=== PATIENT | male | born 1965 | race Caucasian/White ===

== ENCOUNTER 2020-12-18 12:34 | Emergency (ER) | payer OTHER, SELFPAY ==
[2020-12-18 12:56] VITALS: BP 126/71; PULSE 72; RESP 18; TEMP 36.8; O2SAT 98; BMI 51.7
--- NOTE | 2020-12-18 13:46 | ED.ALLEREA ---
HPI - Allergic Reaction General Chief complaint: General Medical Stated complaint: MEDICATION REACTION Time Seen by Provider: 12/18/20 13:35 Source: patient Mode of arrival: ambulatory Limitations: no limitations History of Present Illness MD complaint: other (Rash to lower extremities and starting on right dorsal aspect of hand) Onset (ago): day(s) (Three days) Exposure: medication (Patient recently started Lamictal 8 weeks ago) Symptoms: rash and itching (Worse at nighttime) Severity: moderate Treatment prior to arrival: benadryl Previous Allergic Reaction History: none Related Data Previous Rx's Medication Instructions Recorded diphenhydramine HCl [Benadryl 50 mg PO TID PRN #10 tab 12/18/20 Allergy] famotidine [Pepcid] 20 mg PO BID #10 tab 12/18/20 hydrocortisone 1 appl TOPICAL QD-TID PRN #454 g 12/18/20 prednisone 40 mg PO DAILY 5 Days #10 tab 12/18/20 Allergies Allergy/AdvReac Type Severity Reaction Status Date / Time No Known Allergies Allergy Verified 12/18/20 13:50 Review of Systems Review of Systems: Constitutional : No Fever, No Chills , no body aches, no recent illness Head/Face: No facial swelling, No facial redness ENT/Mouth : No oral/throat swelling, No Hoarseness, No Swallowing Difficulty Eyes: No Eye Pain, No Swelling, No Redness Cardiovascular : No Chest Pain, No SOB, No palpitations Respiratory : No Cough, No Sputum, No Wheezing, No Smoke Exposure, No Dyspnea Gastrointestinal : No Nausea, No Vomiting, No Diarrhea, No abdominal Pain Genitourinary : No Dysuria, No Urinary Frequency, No Hematuria Musculoskeletal : No joint pain, No Myalgias, No Joint Swelling Skin : No Skin Lesions, positive rash Neuro : No Weakness, No Numbness, No Headache, No dizziness, No tingling Psych : No Anxiety/Panic, No Depression Heme/Lymph: No Bruising, No Lymphadenopathy Endocrine : No Polyuria, No Polydipsia Denies changes in lotions or detergents. Denies drainage from rash. Denies any recent sick contacts or recent travel. Patient reports new Lamictal medication approximately 8 weeks ago Yes all other systems are reviewed and are negative PMFSH Past Medical History Attestation statement: The following information was validated with the patient. Medical History Depression HLD (hyperlipidemia) HTN (hypertension) Obesity Social History Social History Advance Directives: No Advance Directives Information Provided: No Physical Exam Vital Signs: Vital Signs: Last Vital Signs Temp 98.3 F 12/18/20 12:56 Pulse 72 12/18/20 12:56 Resp 18 12/18/20 12:56 BP 126/71 12/18/20 12:56 Pulse Ox 98 12/18/20 12:56 Body Mass Index 51.7 vital signs have been reviewed as normal and appeared to be correct. Blood pressure normal. Heart rate normal. Respiration rate normal. Temperature normal. Oxygen saturation normal. Appearance: Alert. Oriented X3. No acute distress. Head: Normal external exam. Normocephalic. Atraumatic. Eyes: PERRLA. EOMI. Conjunctiva and sclera normal. Eyelids normal. ENT: Pharynx normal. Uvula midline. Moist mucous membranes. Neck: Normal inspection. Neck supple. FROM. No adenopathy. Thyroid Normal. No meningeal signs. No neck mass noted. CVS: Normal heart rate and rhythm. Heart sound normal. Pulses normal throughout. No murmurs/rales/gallops. Respiratory: No respiratory distress. Painless inspiration. Breath sounds normal. No wheezes/rales/rhonchi noted. Chest nontender. No accessory muscle usage noted or decreased air movement noted. Back: Full range of motion noted. No rashes/lesion/induration/fluctuance or signs of infection noted. Skin: Skin warm and dry. Normal skin color. Normal skin turgor. To bilateral lower extremities dorsal aspect of feet and up upper legs patient has pruritic macular papular lesions appears like bites. No lesions/lacerations noted. Extremities: Extremities exhibit normal range of motion. Extremities nontender. Neuro: Oriented X 3. No motor deficit. No sensory deficit. Reflexes normal. Normal steady gait. No focal neuro deficits noted. Vascular: + radial pulses/+ 2 distal pedal pulses/+2 dorsalis pedis b/l. Normal cap refill. No cyanosis noted to upper extremity nails and lower extremity toes nails. Course Course Course Narrative: 55-year-old male who recently started Lamictal approximately 8 weeks ago presenting to the ED with complaints of small red bumps to bilateral lower extremity starting on the right hand he believes that this could be an allergic reaction has been taking Benadryl with mild to no symptomatic relief. He reports he has a dog but he does not believe his dog has fleas. He reports that he does not have bed bugs. He denies any recent travel or sick contacts. He reports he has not recently been hospitalized. He reports no one is in his house. On my exam I believe the patient has bedbugs although he does not agree. Will DC home with symptomatic treatment instructions to return if any new or worsening symptoms to follow up with primary care provider. Patient understands agrees with this plan. MDM - Allergic Reaction Medical Records Attestation: I reviewed the patient's medical records. Discharge Plan Discharge Clinical Impression: Rash Patient Disposition: Home, Self-Care Instructions: Acute Rash (ED), Bed Bugs (ED), General Allergic Reaction (ED) Prescriptions: New diphenhydramine HCl [Benadryl Allergy] 25 mg tablet 50 mg PO TID PRN (Reason: rash) Qty: 10 RF: 0 hydrocortisone 2.5 % ointment 1 appl topical QD-TID PRN (Reason: skin irritation) Qty: 454 RF: 0 famotidine [Pepcid] 20 mg tablet 20 mg PO BID Qty: 10 RF: 0 prednisone 20 mg tablet 40 mg PO DAILY 5 Days Qty: 10 RF: 0 Referrals: Katey Jc MD [Primary Care Provider] - 2 days Print Language: Mohawk
== END 2020-12-18 14:03 | disposition home or self-care (01) ==
PROVIDERS: Emergency Provider Emergency Medicine; PCP Internal Medicine
DX: R21 Rash and other nonspecific skin eruption (principal); I10 Essential (primary) hypertension
CPT/HCPCS: 99283

== ENCOUNTER 2023-03-24 14:16 | Emergency (ER) | payer OTHER, SELFPAY ==
--- NOTE | ~2023-03-24 | XR_ITS ---
EXAMINATION: XR CHEST CLINICAL INFORMATION: Cough and shortness of breath COMPARISON: None available. TECHNIQUE: 2 views of the chest were obtained. FINDINGS: The cardiomediastinal silhouette is normal. There is no focal lung consolidation or pleural effusion. The bony structures and soft tissues are unremarkable. XR/XR chest 2V IMPRESSION: No active cardiopulmonary disease.
[2023-03-24 14:37] VITALS: BP 166/95; PULSE 84; RESP 18; TEMP 36.5; O2SAT 97; BMI 58.1
--- NOTE | 2023-03-24 14:37 | ED.GENADULT ---
HPI - General Adult General Chief complaint: General Medical Stated complaint: covid symptons vomiting diarrhea dizzy Time Seen by Provider: 03/25/23 01:33 Source: patient Mode of arrival: ambulatory Limitations: no limitations History of Present Illness HPI narrative: patient already been vaccinated against COVID, patient's partner was sick and was COVID positive patient tested also COVID positive on 03/12 but was asymptomatic at that time but started on Paxlovid by his PCP was doing good for last 3 days patient been having nausea vomiting and diarrhea about 5 to 6 times a day with increasing cough no recent travel no recent antibiotic , patient feel exhausted saturating 100% at room air Related Data Previous Rx's Medication Instructions Recorded diphenhydramine HCl 25 mg tablet 50 mg (2 x 25 mg) PO TID PRN rash 12/18/20 (Benadryl Allergy) #10 tabs famotidine 20 mg tablet (Pepcid) 20 mg PO BID rash #10 tabs 12/18/20 hydrocortisone 2.5 % topical 1 appl topical QD-TID PRN skin 12/18/20 ointment irritation #454 grams prednisone 20 mg tablet 40 mg (2 x 20 mg) PO DAILY rash 5 12/18/20 days #10 tabs benzonatate 200 mg capsule 200 mg PO TID PRN cough #30 caps 03/25/23 loperamide 2 mg tablet (Imodium 2 mg PO Q6H PRN loose stool #14 03/25/23 A-D) tabs ondansetron 4 mg disintegrating 4 mg PO Q6-8H PRN nausea and 03/25/23 tablet vomiting #14 tabs Allergies Allergy/AdvReac Type Severity Reaction Status Date / Time No Known Allergies Allergy Verified 12/18/20 13:50 Review of Systems Review of Systems: Yes all other systems are reviewed and are negative PMFSH Past Medical History Medical History HTN (hypertension) Obesity HLD (hyperlipidemia) Depression Social History Social History Smoked in Last 30 Days: No Use of substances other than those prescribed or required for medical reasons: Yes Substance Use Type: Marijuana Substance Use Frequency: Daily Last Used Substance: Days (ago) Advance Directives: Yes Advance Directives Information Provided: No Advance Directives on File: No Physical Exam ED Vital Signs: Vital Signs - 24 hr 03/25/23 00:46 03/25/23 02:25 Temperature 98.0 F Pulse Rate 69 68 Respiratory Rate 16 14 Blood Pressure 165/87 H 123/73 Pulse Oximetry 100 98 Oxygen Delivery Method Room Air Room Air BMI result Body Mass Index 58.1 Appearance: Alert. Oriented X3. No acute distress. Eyes: no pallor or icterus ENT: Pharynx normal. Oral Mucosa moist Neck: Normal inspection. Neck supple. CVS: Normal heart rate and rhythm. Pulses normal. Respiratory: No respiratory distress. Equal air entry bilateral, no wheezing/rales/rhonchi Abdomen: Soft and nontender. Bowel sounds are present, no mass palpable, no CVA tenderness Skin: Skin warm and dry. Normal skin color. Normal skin turgor. Extremities: No lower extremity edema. No calf tenderness Neuro: Oriented X 3. No motor deficit. Course Course Course Narrative: RME performed by Jolanta Pérez PA-C. Patient is a 57 year old assigned male at presenting to the emergency department feeling generally unwell. Patient had COVID-19 on March 12. Labs, imaging, and swabs ordered. Patient placed back in the waiting room pending room availability and results. Medications Administered Discontinued Medications Generic Name Dose Route Start Last Admin Trade Name Freq PRN Reason Stop Dose Admin Guaifenesin/Codeine Phosphate 10 ml 03/25/23 01:42 03/25/23 01:51 Guaifen/Codeine Sf 200/20/10ml 10 Ml Liquid PO 03/25/23 01:43 10 ml ONCE ONE Administration Sodium Chloride 1,000 mls @ 999 mls/hr 03/25/23 01:00 03/25/23 02:04 Ns IVCONT 03/25/23 03:00 999 mls/hr .Q1H1M ALICIA Administration Loperamide HCl 2 mg 03/25/23 01:42 03/25/23 01:51 Loperamide Hcl 2 Mg Capsule PO 03/25/23 01:43 2 mg ONCE ONE Administration Ondansetron HCl 4 mg 03/25/23 00:55 03/25/23 01:45 Ondansetron Hcl 4 Mg/2 Ml Vial IVPUSH 03/25/23 00:56 4 mg ONCE ONE Administration Potassium Chloride 40 meq 03/25/23 00:55 03/25/23 01:45 Potassium Chloride Packet 20 Meq Packet PO 03/25/23 00:56 40 meq ONCE ONE Administration Medical Decision Making Medical Decision Making [facility] Narrative: patient with COVID positive nausea saturating 100% at room air will discharge patient home on Zofran and Imodium as needed and cough drops patient's potassium was 3.2 potassium was replaced in the ER Differential Diagnosis Differential Diagnoses: The differential diagnosis associated with the presentation includes gastroenteritis /COVID/viral Lab Data [facility] Lab Attestation statement: I reviewed the patient's lab results. 03/24/23 16:16 03/24/23 16:16 Labs: Lab Results 03/24/23 Range/Units 16:16 WBC 5.9 (4.8-10.8) X10*3/uL RBC 5.22 (4.60-5.80) X10*6/uL Hgb 15.1 (14.0-18.0) g/dl Hct 43.5 (42.0-52.0) % MCV 83.3 (80.0-98.0) fL MCH 28.9 (27.0-33.0) pg MCHC 34.7 (31.0-36.0) g/dl RDW 13.4 (11.0-16.0) % Plt Count 138 L (160-400) X10*3/uL MPV 10.6 (9.4-12.4) fL Immature Gran % (Auto) 0.5 H (0.0-0.4) % Neut % (Auto) 71.5 (45-73) % Lymph % (Auto) 15.0 L (20-40) % [place] % (Auto) 11.8 H (2-11) % Eos % (Auto) 0.2 (0-4) % Baso % (Auto) 1.0 (0-2) % Lymph # (Auto) 0.9 L (1.2-4.9) X10*3/uL [place] # (Auto) 0.7 (0.1-1.2) X10*3/uL Eos # (Auto) 0.0 (0.0-0.4) X10*3/uL Baso # (Auto) 0.1 (0.0-0.2) X10*3/uL Abs Immat Gran (auto) 0.03 (0.00-0.03) X10*3/uL Absolute Neuts (auto) 4.2 (2.0-8.3) x10*3/uL Absolute Nucleated RBC 0.000 (0.0-0.012) X10*3/uL Nucleated RBC % (auto) 0.0 (0.0-0.2) /100WBC Sodium 139 (135-145) mmol/L Potassium 3.2 L (3.3-5.1) mmol/L Chloride 105 (96-108) mmol/L Carbon Dioxide 23 (22-29) mmol/L Anion Gap 14 (12-20) BUN 16 (9-16) mg/dL Creatinine 0.79 (0.5-1.4) mg/dL Estim Creat Clear Calc 164.9 Estimated GFR > 60 Random Glucose 125 H (60-115) mg/dL Calcium 9.4 (8.4-10.2) mg/dL Magnesium 2.3 (1.6-2.6) mg/dL Total Bilirubin 0.5 (0.0-1.0) mg/dL AST 19 (5-37) U/L ALT 28 (0-40) U/L Alkaline Phosphatase 50 (39-117) U/L Total Protein 7.4 (6.5-8.0) g/dL Albumin 4.0 (3.5-5.0) g/dL Influenza Type A (PCR) NEGATIVE (Negative) Influenza Type B (PCR) NEGATIVE (Negative) RSV RNA Qual (PCR) NEGATIVE (Negative) SARS-CoV-2 RNA (RT-PCR) POSITIVE A (Negative) Discharge Plan Discharge Clinical Impression: COVID-19 Patient Disposition: Home, Self-Care Instructions: COVID-19 (Coronavirus Disease 2019) (ED) Additional Instructions: drink plenty of fluids medicine for nausea and diarrhea and cough as prescribed social distancing Prescriptions: New ondansetron 4 mg tablet,disintegrating 4 mg PO Q6-8H PRN (Reason: nausea and vomiting) Qty: 14 0RF loperamide [Imodium A-D] 2 mg tablet 2 mg PO Q6H PRN (Reason: loose stool) Qty: 14 0RF benzonatate 200 mg capsule 200 mg PO TID PRN (Reason: cough) Qty: 30 0RF No Action diphenhydramine HCl [Benadryl Allergy] 25 mg tablet 50 mg PO TID PRN (Reason: rash) Qty: 10 0RF hydrocortisone 2.5 % ointment 1 appl topical QD-TID PRN (Reason: skin irritation) Qty: 454 0RF famotidine [Pepcid] 20 mg tablet 20 mg PO BID Qty: 10 0RF prednisone 20 mg tablet 40 mg PO DAILY 5 Days Qty: 10 0RF Interventions: ED Discharge Assessment Last Done: 03/25/23 02:29 Discharge Date/Time: 03/25/23 02:30
[2023-03-24 16:27] LABS: Basophils Absolute Auto 0.1 X10*3/uL (0.0-0.2); Eosinophils Percent Auto 0.2 % (0-4); Imm Gran Abs Auto 0.03 X10*3/uL (0.00-0.03); Imm Gran Pct Auto 0.5 % (0.0-0.4); Mean Platelet Volume 10.6 fL (9.4-12.4); PLT CLUMP 1; SCAN SMEAR FLAG 1
[2023-03-24 16:28] LABS: Hematocrit 43.5 % (42.0-52.0); Hemoglobin 15.1 g/dl (14.0-18.0); Lymphocytes Absolute Auto 0.9 X10*3/uL (1.2-4.9); Mean Corpuscular HGB Conc 34.7 g/dl (31.0-36.0); Mean Corpuscular Hemoglobin 28.9 pg (27.0-33.0); Mean Corpuscular Volume 83.3 fL (80.0-98.0); Monocytes Absolute Auto 0.7 X10*3/uL (0.1-1.2); Monocytes Percent Auto 11.8 % (2-11); Neutrophils Absolute Auto 4.2 x10*3/uL (2.0-8.3); Neutrophils Percent Auto 71.5 % (45-73); Red Blood Count 5.22 X10*6/uL (4.60-5.80); Red Cell Distribution Width 13.4 % (11.0-16.0)
[2023-03-24 16:40] LABS: Alanine Aminotransferase 28 U/L (0-40); Alkaline Phosphatase 50 U/L (39-117); Anion Gap 14 (12-20); Aspartate Amino Transferase 19 U/L (5-37); Bilirubin Total 0.5 mg/dL (0.0-1.0); Blood Urea Nitrogen 16 mg/dL (9-16); Calcium 9.4 mg/dL (8.4-10.2); Carbon Dioxide 23 mmol/L (22-29); Chloride 105 mmol/L (96-108); Creatinine Clr Calc Pharmacy 164.9; Estimated Glomerular Filt Rate > 60; Glucose Random 125 mg/dL (60-115); Magnesium 2.3 mg/dL (1.6-2.6); Potassium 3.2 mmol/L (3.3-5.1); Sodium 139 mmol/L (135-145); Total Protein 7.4 g/dL (6.5-8.0)
[2023-03-24 16:54] LABS: Platelet Count 138 X10*3/uL (160-400); White Blood Count 5.9 X10*3/uL (4.8-10.8)
[2023-03-24 16:55] LABS: MANUAL DIFF FLAG NO
[2023-03-24 17:03] LABS: Influenza A PCR NEGATIVE (Negative); Influenza B PCR NEGATIVE (Negative); Resp Syncy Virus RNA Qual PCR NEGATIVE (Negative); SARS COV2 PCR INHOUSE POSITIVE (Negative)
[2023-03-25 00:46] VITALS: BP 165/87; PULSE 69; RESP 16; TEMP 36.7; O2SAT 100
--- NOTE | 2023-03-25 00:47 | PC.NURSE ---
Pt ca&ox4, no signs of acute distress Pt ambulates with a steady gait. Pt reports /10 mid abdm pain. Vitals done. Report given to pts RN. Plan of care ongoing.
[2023-03-25] MEDS: 0.9 % Sodium Chloride 1,000 ML 999 ML IVCONT ×2 (01:32→02:04)
[2023-03-25] MEDS: ondansetron HCL 4 MG/2 ML VIAL IVPUSH (01:45)
[2023-03-25] MEDS: Potassium Chloride Packet 20 MEQ PACKET 40 MEQ PO (01:45)
[2023-03-25] MEDS: Loperamide HCl 2 MG CAPSULE PO (01:51)
[2023-03-25] MEDS: guaiFEN/Codeine SF 200/20/10ML 10 ML LIQUID PO (01:51)
[2023-03-25 02:25] VITALS: BP 123/73; PULSE 68; RESP 14; O2SAT 98
== END 2023-03-25 02:30 | disposition home or self-care (01) ==
PROVIDERS: Physician Assistant Medical; Emergency Provider Internal Medicine; PCP Internal Medicine
DX: U07.1 COVID-19 (principal); R11.2 Nausea with vomiting, unspecified; R06.02 Shortness of breath; Z79.899 Other long term (current) drug therapy
CPT/HCPCS: 0241U; 71046; 80053; 83735; 85025; 96361; 96374; 99284; J2405

== ENCOUNTER 2025-04-11 08:10 | Outpatient (AMB) | payer OTHER, SELFPAY ==
--- OUTSIDE RECORDS SUMMARY | 2025-04-11 08:31 | XMS_ITS | Clinical Summary ---
Author Organization [address] Address [address] [place] [phone] Phone Care Team Providers Care Supervisor Accounts Receivable Name Role Phone Ruth Singh MD Primary Care Provider [phone] Allergies Active Allergy Reactions Criticality Noted Date Comments Hydrocodone-Acetaminophen Nausea And Vomiting 1 Pneumococcal 23-Sari Ps Vaccine 03/11 Medications ibuprofen (ADVIL,MOTRIN) 800 mg tablet Take 1 Tablet by mouth every 8 hours as needed for Pain. - Oral Active lamoTRIgine (LaMICtal) 200 mg tablet Take by mouth 1 (one) time each day. Active CHOLECALCIFEROL , VITAMIN D3, ORAL Take by mouth 1 (one) time each day. Active FLAXSEED OIL ORAL Take by mouth 1 (one) time each day. Active ARIPiprazole (ABILIFY) 2 mg tablet Take 1 tablet (2 mg total) by mouth 1 (one) time each day. Active omega-3 fatty acids-fish oil 300-500 mg capsule Take by mouth 1 (one) time each day. Active multivitamin tablet Take 1 tablet by mouth 1 (one) time each day. Active NON FORMULARY CPAP Historical (HISTORICAL CPAP===16 cm by Nasal route at bedtime. Via full face mask with oxygen @@ hs - Nasal Active Oxygen Therapy (O2) gas by Nasal route at bedtime. apria - Nasal Active aspirin 81 mg EC tablet Take 1 tablet (81 mg total) by mouth 1 (one) time each day. Active lisinopriL (PRINIVIL,ZESTR IL) 10 mg tablet Take 1 tablet (10 mg total) by mouth 1 (one) time each day. 90 tablet 1 5 Active atorvastatin (LIPITOR) 20 mg tablet Take 1 tablet (20 mg total) by mouth 1 (one) time each day. 90 each 1 5 Active VITAMIN K2 ORAL Take by mouth. Active Active Problems Problem Noted Date Diagnosed Date HTN (hypertension) 03/11/2024 Depression 03/11/2024 Sleep apnea 03/11/2024 Morbid obesity ([facility] V24, [facility] V28) 2023 Asthma 03/11/2024 Pure hypercholesterolemia 03/11/2024 Elevated glucose 03/11/2024 KING on CPAP 03/11/2024 Hepatic steatosis 03/11/2024 Bipolar 2 disorder ([facility] V24, [facility] V28) Palpitation 03/11/2024 Biliary dyskinesia 03/11/2024 Sinus tachycardia 03/11/2024 Frequent PVCs 03/11/2024 Immunizations Immunization Administration Dates Next Due Influenza Quadravalent, MDCK , 0.5ml, preservative free (Flucelvax) 6mo and older 02/18/2019 Influenza Quadravalent, MDCK , 0.5ml, with preservative (Flucelvax) 6mo and older 03/24/2017 Influenza trivalent, with pr eservative (Fluzone; Afluria) 6mo and older 06/11/2016,04/07/2014,02/02/2013 Influenza, Unspecified 03/30/2018 Pneumococcal polysaccharide 23 valent (Pneumovax 23) 2yo and older 08/27/2013 Tdap Tetanus diptheria acell ular pertussis (Boostrix; Adacel) 7yo and older 10/19/2024,08/27/2013 Surgical History Surgery Date Site/Laterality Comments OTHER SURGICAL HISTORY PROCEDURE: ---- OTHER ----; COMMENT: salivary glands removed OTHER SURGICAL HISTORY Left PROCEDURE: EXCISION OF SALIVARY GLAND CHOLECYSTECTOMY PROCEDURE: UT LAPAROSCOPY SURG CHOLECYSTECTOMY Medical History Medical History Date Comments Morbid obesity ([facility] V24, [facility] V28) 02/04/20 13 DX:Morbid obesity (HCC) Sleep apnea 02/03/2013 DX:Sleep apnea Depression 02/03/2013 DX:Depression HTN (hypertension) 02/03/2013 DX:HTN (hyper tension) Pure hypercholesterolemia 04/07/2014 DX:Pur e hypercholesterolemia Severe nausea DX:Severe nausea Biliary dyskinesia DX:Biliary dy skinesia Family History Medical History Relation Name Comments Other: Other Mother Autoimmune disease Neg Hx Breast cancer Neg Hx Colon cancer Neg Hx Coronary artery disease Neg Hx Diabetes Neg Hx Heart attack Neg Hx Heart failure Neg Hx Hyperlipidemia Neg Hx Hypertension Neg Hx Mental illness Neg Hx Prostate cancer Neg Hx Sleep apnea Neg Hx Thyroid disease Neg Hx Relation Name Status Comments Father Alive Mother Social History Tobacco Use Types Packs/Day Years Used Date Smoking Tobacco: Former Cigarettes 0 Q uit: 06/05/1992 Smokeless Tobacco: Former Alcohol Use Standard Drinks/Week Comments Not Asked 0 (1 standard drink = 0.6 oz pur e alcohol) Housing Instability Answer Date Recorde d Are you worried that in the next 2 months you may not have stable housing? No 10/19/2024 Food Access & Nutrition Answer Date Rec orded Do you have access to a vari ety of food including fruits and vegetables? Yes 10/19/2024 Access to Healthcare Answer Date Record ed Within the last 3 months, ho w many times did you visit the emergency department for your medical care? 0 10/19/2024 Health Literacy Answer Date Recorded How often do you need to hav e someone help you when you read instructions, pamphlets, or other written material from your doctor or pharmacy? Never 10/19/2024 Caregiver: How often do you need to have someone help you when you read instructions, pamphlets, or other written material from your doctor or pharmacy? Not on file 10/19/2024 Financial Risk Answer Date Recorded How hard is it for you to pa y for the very basics like food, housing, medical care, and air conditioning / heating? Very hard 10/19/2024 Transportation Answer Date Recorded Has the lack of transportati on kept you from meetings, work, or from getting things needed for daily living? No Has the lack of transportati on kept you from medical appointments or from getting medications? No 10/19/2024 Social Isolation Answer Date Recorded How often do you feel lonely or isolated from th ose around you? Never 10/19/2024 Food Risk Answer Date Recorded Within the past 12 months we worried whether our food would run out before we got money to buy more. Never true 10/19/2024 Within the past 12 months th e food we bought just didn't last and we didn't have money to get more. Never true 10/19/2024 Dependent Care Answer Date Recorded Do you need help finding or paying for care for your loved ones. For example, child adolescent care or elderly care for an older adult? No 10/19/2024 Education Answer Date Recorded Do you think completing more education or training, like finishing a GED, going to college, or learning a trade, would be helpful for you? No 10/19/2024 Employment and Income Answer Date Recor ded During the last four weeks, have you been actively looking for work? No 10/19/2024 Living Situation Answer Date Recorded What is your living situation? Unrecognized valu e 10/19/2024 Sex and Gender Information Value Date Recorded Sex Assigned at Not on file Legal Sex Male 6:53 PM EST Gender Identity Not on file Sexual Orientation Not on file Obstetrics History Last Filed Vital Signs Vital Sign Reading Time Taken Comments Blood Pressure 122/80 10/19/2024 4:26 PM EDT Pulse 76 10/19/2024 4:26 PM EDT Temperature 36.2 C (97.2 F) 10/19/2024 4:26 PM EDT Respiratory Rate 16 10/19/2024 4:26 PM EDT Oxygen Saturation 97% 10/19/2024 4:26 PM EDT Inhaled Oxygen Concentration - - Weight 160 kg (352 lb) 10/19/2024 4:26 PM EDT Height 172.7 cm (5' 8 ) 10/19/2024 4:26 PM EDT Body Mass Index 53.52 10/19/2024 4:26 PM EDT Plan of Treatment Health Maintenance Due Date Last Done Comments Hepatitis A Vaccines (1 of 2 - Risk 2-dose series) 1986 Hepatitis B Vaccines (1 of 3 - 19+ 3-dose series) 1986 Pneumococcal Vaccine: 50+ Years (2 of 2 - PCV) 08/27/2014 08/27/2013 RSV Immunization Adult Patients (1 - Risk 50-74 years 1-dose series) 2017 Zoster Vaccines (1 of 2) 2017 HIV Screening 05/04/2022 Hepatitis C Screening 05/04/2022 Influenza Vaccine (#1) 2025 , 03/29/2022, 02/18/2019, Additional history exists Hypertension/CHF/CAD Annual BMP Blood Test 04/19/2025 04/19/2024, 02/13/2023 Social Influencers of Health Screening 10/19/2025 10/19/2024 Cholesterol Screening (Lipid Panel) 04/19/2029 04/19/2024, 02/13/2023 Colorectal Cancer Screening: Colonoscopy 03/19/2031 03/19/2021 DTaP,Tdap,and Td Vaccines (3 - Td or Tdap) 10/19/2034 10/19/2024, 08/27/2013 COVID-19 Vaccine Completed 05/07/2024, , 11/07/2021, Additional history exists Depression Screening Completed 10/19/2024 HIB Vaccines Aged Out No longer eligi ble based on patient's age to complete this topic HPV Vaccines Aged Out No longer eligi ble based on patient's age to complete this topic IPV Vaccines Aged Out No longer eligi ble based on patient's age to complete this topic MMR Vaccines Aged Out No longer eligi ble based on patient's age to complete this topic Meningococcal ACWY Vaccine Aged Out N o longer eligible based on patient's age to complete this topic Meningococcal B Vaccine Aged Out No l onger eligible based on patient's age to complete this topic RSV Immunization Patients Under 20 months Aged Out No longer eligible based on patient's age to complete this topic Varicella Vaccines Aged Out No longer eligible based on patient's age to complete this topic Procedures Procedure Name Priority Date/Time Associated Diagnosis Comments BASIC METABOLIC PANEL Routine 04/19/2024 3:41 PM EST Primary hypertension LIPID PANEL WITH REFLEX TO DIRECT LDL Routine 04/19/2024 3:41 PM EST Pure hypercholesterolemia HM COLONOSCOPY Routine 03/19/2021 from Last 3 Months or Most Recently Relevant to Health Maintenance Results * (ABNORMAL) Lipid panel with reflex to direct LDL (04/19/2024 3:41 PM EST) Cholesterol 188 0 - 200 mg/dL LAB CHEMISTRY METHOD 04/19/2024 6:37 PM EST [facility] Triglycerides 291(H) 0 - 150 mg/dL LAB CHEMISTRY METHOD 04/19/2024 6:37 PM [facility] HDL 41 >=40 mg/dL LAB CHEMISTRY METHOD 04/19/2024 6:37 PM [facility] LDL Calculated 89 0 - 100 mg/dL LAB CHEMISTRY METHOD 04/19/2024 6:37 PM [facility] VLDL Cholesterol Smith 58.2 mg/dL LAB CHEMISTRY METHOD 04/19/2024 6:37 PM [facility] Non HDL Chol. (LDL+VLDL) 147(H) <145 mg/dL LAB CHEMISTRY METHOD 04/19/2024 6:37 PM [facility] Chol/HDL Ratio 4.6(H) 0.0 - 4.4 LAB CHEMISTRY METHOD 04/19/2024 6:37 PM [facility] Blood Venous blood specimen / Unknown Venipuncture / Unknown 04/19/2024 3:41 PM EST 04/19/2024 3:41 PM EST us Nikolai DIAZ LAB BLOOD ORDERABLES Final Res ult [facility] [address] [place] [address], * Basic metabolic panel (04/19/2024 3:41 PM EST) Pathologist [facility] Sodium 143 133 - 145 mmol/L LAB CHEMISTRY METHOD 04/19/2024 6:35 PM [facility] Potassium 4.0 3.5 - 5.5 mmol/L LAB CHEMISTRY METHOD 04/19/2024 6:35 PM [facility] Chloride 110 96 - 110 mmol/L LAB CHEMISTRY METHOD 04/19/2024 6:35 PM [facility] CO2 26 21 - 32 mmol/L LAB CHEMISTRY METHOD 04/19/2024 6:35 PM [facility] Anion Gap 7 3 - 11 LAB CHEMISTRY METHOD 04/19/2024 6:35 PM [facility] Glucose 79 70 - 100 mg/dL LAB CHEMISTRY METHOD 04/19/2024 6:35 PM [facility] BUN 20 5 - 25 mg/dL LAB CHEMISTRY METHOD 04/19/2024 6:35 PM [facility] Creatinine 1.16 0.70 - 1.30 mg/dL LAB CHEMISTRY METHOD 04/19/2024 6:35 PM [facility] eGFR 73 >=60 mL/min/1. 73m2 LAB CHEMISTRY METHOD 04/19/2024 6:35 PM [facility] Comment:Calculation based on the Chronic Kidney Disease Epidemiology Collaboration (CKD-EPI) equation refit without adjustment for race. BUN/Creatinine Ratio 17.2 LAB CHEMISTRY METHOD 04/19/2024 6:35 PM [facility] Calcium 9.5 8.5 - 10.5 mg/dL LAB CHEMISTRY METHOD 04/19/2024 6:35 PM [facility] Blood Venous blood specimen / Unknown Venipuncture / Unknown 04/19/2024 3:41 PM EST 04/19/2024 3:41 PM EST Nikolai DIAZ LAB BLOOD ORDERABLES Final Res ult [facility] [address] [place] [address], * Colonoscopy (03/19/2021) Colonoscopy no interpretation abstracted Anatomical Region Laterality Modality Other Historical Provider HEALTH MAINTENANCE Final Result from Last 3 Months or Most Recently Relevant to Health Maintenance Insurance [employer] Care Teams Supervisor Accounts Receivable Relationship Specialty Start Date End Date Ruth Singh MD [address] [place] [phone] PCP - General Internal Medicine 04/15/24
--- NOTE | 2025-04-11 12:06 | MHC.OFFVISWM ---
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 BMI 55.0 Allergies opiates Allergy (Intermediate, Uncoded 04/11/25 12:06) Nausea Medication List - Last Reconciled 04/11/25 by Allen Singh MD albuterol sulfate 90 mcg/actuation (Ventolin HFA) 2 puffs inhalation Q6H PRN aripiprazole (Abilify) 2 mg PO BEDTIME atorvastatin (Lipitor) 20 mg PO BEDTIME escitalopram oxalate 10 mg PO DAILY lamotrigine (Lamictal) 200 mg PO DAILY lisinopril 20 mg PO DAILY ondansetron 4 mg PO Q6-8H PRN HPI HPI 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 BMI 55.0: Details: Start time: 11.48am, End time: 12.48pm ?I spent 50 minutes speaking with the patient on the phone plus an additional 10 minutes reviewing and updating records for a total of 60 minutes HPI Comments Details: Previous weight loss efforts: self diets and exercise (70lbs) Wakes up: 7am, Sleeps: 11pm Breakfast: skips Lunch: skips Dinner: 5-6pm (stir jensen, tacos) Snacks: 2-3 snacks after dinner (cheese, cookies) Exercise: none Beverages: Coffee (2 cup/d cream and sugar), Tea: none, Soda: 1/2 weeks, Juice: none, ETOH: none since 2007 [facility] Medical History (Updated 04/11/25 @ 12:27 by Allen Singh MD) Obstructive sleep apnea on CPAP Bipolar 1 disorder Asthma Morbid obesity HTN (hypertension) Obesity HLD (hyperlipidemia) Depression Surgical History (Updated 04/11/25 @ 12:15 by Allen Singh MD) History of laparoscopic cholecystectomy History of submandibular gland removal History of colonoscopy Family History (Updated 03/07/25 @ 16:11 by Gasper Plunkett RN) Father No problems noted. Social History Substance Use Type: Marijuana Telehealth Telehealth Telehealth Platform: Telephone Location of provider rendering services: practice address Location of patient: address on file Patient Identification confirmed using: Name, : Yes Telehealth method: voice only Patient verbally consented to treatment: Yes Patient verbally consented to billing insurance company: Yes Patient informed of any privacy concerns related to visit: Yes Minutes spent on Phone/Video with Pt.: 60 Assessment & Plan Assessment & Plan (1) Morbid obesity: Code(s): E66.01 - Morbid (severe) obesity due to excess calories Category: Medical Plan: 1.? Plan for lap sleeve gastrectomy. If diaphragmatic or ventral hernias are present at time of surgery, these will be repaired laparoscopically as well. I emphasized the importance of close follow-up, adherence to instructions and good communication. The surgery does not replace the need to change your lifestlyle which is the cause of the obesity problem. The surgery provides the motivation to try again to change your lifestyle, it reduces the appetite and make the transition to a better lifestyle easier and doubles the amount of weight you would lose compared to doing the lifestyle change without the surgery. You will need to be on a liquid diet with protein shakes for 2 weeks before surgery to maximize weight loss and boost your nutritional status to recover better from surgery and also for the first two weeks after surgery to let the stomach heal before we introduce other foods. After the first 2 weeks we will introduce protein bars and soft foods like scrambled eggs, cottage cheese and yogurt and after the 6th week will introduce meat, fish and cooked vegetables in small amounts. Over time you should be able to eat everything in small amounts. Side effects like nausea, vomiting, heartburn or abdominal pain are not common in the practice unless you are not following in the practice. This operation requires lifetime commitment to following in our practice and communication with me. You will much less weight and experience side effects if you don?t communicate or not following in the practice. Complications are rare and in our practice is about 1/10 of the national average. However, you can develop bleeding that may require transfusion (hasn?t happened for year in the practice), you may from complications (we did not have any deaths in the practice) and infections. Infections are usually a result of breakdown in communication or not understanding or following directions correctly. They are difficult to treat, they can happen during the first 6 weeks, they may require to be in the hospital for weeks or even months, not being able to eat by mouth and you may have drains and surgeries to try and correct the issue. Other risks and complications include possible conversion to an open procedure, leaks, small bowel obstruction, blood clots, cardiac, or pulmonary complications, as fpc complications such as ulcers, insufficient weight loss and vitamin deficiencies. 2. Nutritional counseling. Start with one CELEBRATE REBUILD protein (buy online with the link I gave you) shakes (TWO scoops in 8oz low fat unsweetened almond milk each) at 8am-10am, 1 protein bar (CELEBRATE protein bars, buy at [facility], buy online with the link I gave you) ) at 11am-1pm, another CELEBRATE REBUILD protein shakes (TWO scoops in 8oz low fat unsweetened almond milk each) at 2pm-4pm, dinner at 5pm (12 forks of protein and 12 forks of salad/vegetables), another Celebrate protein bar at 7pm-9pm AND another HALF protein bar after dinner at 10pm-11pm. So you do 2 protein shakes, 2.5 protein bars and one meal per day. Meal to include lean meat (beef, fish, pork, turkey, chicken), or macedonian yogurt, or egg whites, or beans with a salad with olive oil and fruits (berries, pears, apples, kiwi). Avoid salt, breads, potatoes, rice, pasta, desserts. 3. Each shake would be drunk slowly, like coffee in a period of 2 hours. 4. Cut each bar in 4 pieces and eat each piece in 30min ?to make each bar last 2 hours. 5. I emphasized the importance of measuring accurately the food portion and measure it when serving the food in plate 6. The meal portions include 12 full-size forks of meat and 12 full-size forks of salad. You always eat the meat portion but you can replace up to 6 forks for salad/vegetables with rice, potatoes or pasta, or a fruit ?if you like. The less you do it the better weight loss will be. 7. One full-size fork is what it can be scooped on the fork without falling aside and not what can be bit with the fork. Use regular forks like those you find in a typical restaurant. 8.? Please buy the body composition scale we discussed and send me weight measurements as soon as possible and then once a week. Always include your diet and exercise plan. 9. Start walking outside daily, tracking calories with a goal of 300 calories per day, daily. Goal is to burn 2000 calories per week on exercise, which means either 300 calories daily, or 400 calories 5 days per week, or 500 calories 4 days per week, or 650 calories 3 days per week. 10. The best choice would be to purchase a stationary bike at home that can track calories. If you get one, please start stationary bike at a resistance level of 4.0 Increase level by 1.0 every 3 min to a max level of 10.0. Stay at this level for 3 min and then return to level 4.0 and repeat same steps until 300 calories are burned. Goal is to burn 2000 calories per week on exercise 11. Goal is to lose at least 1.5-2lbs per week 12. Goal to lose 10% of your weight before surgery, which is about 41lbs. Ultimate weight goal: 320lbs before surgery 13. Please follow the diet plan exactly without any change. If you don't like something about the plan or you feel hungry you need to communicate with me so I can help you revise the plan. You should not change the plan yourself 14. To be scheduled for EGD to assess the stomach's anatomy. The possibility of biopsies was discussed. Patient needs to avoid use of NSAIDs and aspirin for 1 week prior to EGD. You must be on liquids only the day before your endoscopy. Risks of perforation and bleeding was discussed with the patient. This will be an outpatient procedure with IV sedation. Orders: Orders H Pylori Breath Test Today E66.01 - Morbid (severe) obesity due to excess calories, E78.5 - Hyperlipidemia, unspecified, G47.33 - Obstructive sleep apnea (adult) (pediatric), I10 - Essential (primary) hypertension, J45.909 - Unspecified asthma, uncomplicated, Z99.89 - Dependence on other enabling machines and devices IRON PROFILE Today E66.01 - Morbid (severe) obesity due to excess calories, E78.5 - Hyperlipidemia, unspecified, G47.33 - Obstructive sleep apnea (adult) (pediatric), I10 - Essential (primary) hypertension, J45.909 - Unspecified asthma, uncomplicated, Z99.89 - Dependence on other enabling machines and devices Vitamin B12 and Folate Today E66.01 - Morbid (severe) obesity due to excess calories, E78.5 - Hyperlipidemia, unspecified, G47.33 - Obstructive sleep apnea (adult) (pediatric), I10 - Essential (primary) hypertension, J45.909 - Unspecified asthma, uncomplicated, Z99.89 - Dependence on other enabling machines and devices Zinc Today E66.01 - Morbid (severe) obesity due to excess calories, E78.5 - Hyperlipidemia, unspecified, G47.33 - Obstructive sleep apnea (adult) (pediatric), I10 - Essential (primary) hypertension, J45.909 - Unspecified asthma, uncomplicated, Z99.89 - Dependence on other enabling machines and devices C Reactive Protein Today E66.01 - Morbid (severe) obesity due to excess calories, E78.5 - Hyperlipidemia, unspecified, G47.33 - Obstructive sleep apnea (adult) (pediatric), I10 - Essential (primary) hypertension, J45.909 - Unspecified asthma, uncomplicated, Z99.89 - Dependence on other enabling machines and devices Vitamin B1 Today E66.01 - Morbid (severe) obesity due to excess calories, E78.5 - Hyperlipidemia, unspecified, G47.33 - Obstructive sleep apnea (adult) (pediatric), I10 - Essential (primary) hypertension, J45.909 - Unspecified asthma, uncomplicated, Z99.89 - Dependence on other enabling machines and devices Vitamin A Today E66.01 - Morbid (severe) obesity due to excess calories, E78.5 - Hyperlipidemia, unspecified, G47.33 - Obstructive sleep apnea (adult) (pediatric), I10 - Essential (primary) hypertension, J45.909 - Unspecified asthma, uncomplicated, Z99.89 - Dependence on other enabling machines and devices TSH reflex Free T4 Today E66.01 - Morbid (severe) obesity due to excess calories, E78.5 - Hyperlipidemia, unspecified, G47.33 - Obstructive sleep apnea (adult) (pediatric), I10 - Essential (primary) hypertension, J45.909 - Unspecified asthma, uncomplicated, Z99.89 - Dependence on other enabling machines and devices Ferritin Today E66.01 - Morbid (severe) obesity due to excess calories, E78.5 - Hyperlipidemia, unspecified, G47.33 - Obstructive sleep apnea (adult) (pediatric), I10 - Essential (primary) hypertension, J45.909 - Unspecified asthma, uncomplicated, Z99.89 - Dependence on other enabling machines and devices US abdomen comp w elastography Today E66.01 - Morbid (severe) obesity due to excess calories, E78.5 - Hyperlipidemia, unspecified, G47.33 - Obstructive sleep apnea (adult) (pediatric), I10 - Essential (primary) hypertension, J45.909 - Unspecified asthma, uncomplicated, Z99.89 - Dependence on other enabling machines and devices XR chest 2V Today E66.01 - Morbid (severe) obesity due to excess calories, E78.5 - Hyperlipidemia, unspecified, G47.33 - Obstructive sleep apnea (adult) (pediatric), I10 - Essential (primary) hypertension, J45.909 - Unspecified asthma, uncomplicated, Z99.89 - Dependence on other enabling machines and devices Insulin Today E66.01 - Morbid (severe) obesity due to excess calories, E78.5 - Hyperlipidemia, unspecified, G47.33 - Obstructive sleep apnea (adult) (pediatric), I10 - Essential (primary) hypertension, J45.909 - Unspecified asthma, uncomplicated, Z99.89 - Dependence on other enabling machines and devices Hemoglobin A1c Today E66.01 - Morbid (severe) obesity due to excess calories, E78.5 - Hyperlipidemia, unspecified, G47.33 - Obstructive sleep apnea (adult) (pediatric), I10 - Essential (primary) hypertension, J45.909 - Unspecified asthma, uncomplicated, Z99.89 - Dependence on other enabling machines and devices Complete Blood Count Auto Diff Today E66.01 - Morbid (severe) obesity due to excess calories, E78.5 - Hyperlipidemia, unspecified, G47.33 - Obstructive sleep apnea (adult) (pediatric), I10 - Essential (primary) hypertension, J45.909 - Unspecified asthma, uncomplicated, Z99.89 - Dependence on other enabling machines and devices Lipid Panel Today E66.01 - Morbid (severe) obesity due to excess calories, E78.5 - Hyperlipidemia, unspecified, G47.33 - Obstructive sleep apnea (adult) (pediatric), I10 - Essential (primary) hypertension, J45.909 - Unspecified asthma, uncomplicated, Z99.89 - Dependence on other enabling machines and devices Comprehensive Met. Panel Today E66.01 - Morbid (severe) obesity due to excess calories, E78.5 - Hyperlipidemia, unspecified, G47.33 - Obstructive sleep apnea (adult) (pediatric), I10 - Essential (primary) hypertension, J45.909 - Unspecified asthma, uncomplicated, Z99.89 - Dependence on other enabling machines and devices Vitamin D 25-OH Total Today E66.01 - Morbid (severe) obesity due to excess calories, E78.5 - Hyperlipidemia, unspecified, G47.33 - Obstructive sleep apnea (adult) (pediatric), I10 - Essential (primary) hypertension, J45.909 - Unspecified asthma, uncomplicated, Z99.89 - Dependence on other enabling machines and devices ECG 12 lead EKG Today E66.01 - Morbid (severe) obesity due to excess calories, E78.5 - Hyperlipidemia, unspecified, G47.33 - Obstructive sleep apnea (adult) (pediatric), I10 - Essential (primary) hypertension, J45.909 - Unspecified asthma, uncomplicated, Z99.89 - Dependence on other enabling machines and devices FL upper GI w air Today E66.01 - Morbid (severe) obesity due to excess calories, E78.5 - Hyperlipidemia, unspecified, G47.33 - Obstructive sleep apnea (adult) (pediatric), I10 - Essential (primary) hypertension, J45.909 - Unspecified asthma, uncomplicated, Z99.89 - Dependence on other enabling machines and devices Referrals Behavioral Health Referral E66.01 - Morbid (severe) obesity due to excess calories, E78.5 - Hyperlipidemia, unspecified, G47.33 - Obstructive sleep apnea (adult) (pediatric), I10 - Essential (primary) hypertension, J45.909 - Unspecified asthma, uncomplicated, Z99.89 - Dependence on other enabling machines and devices Nutrition/Dietitian Referral E66.01 - Morbid (severe) obesity due to excess calories, E78.5 - Hyperlipidemia, unspecified, G47.33 - Obstructive sleep apnea (adult) (pediatric), I10 - Essential (primary) hypertension, J45.909 - Unspecified asthma, uncomplicated, Z99.89 - Dependence on other enabling machines and devices
[2025-04-11 12:19] VITALS: BMI 54.9
== END 2025-04-11 12:50 | disposition home or self-care (01) ==
LOC: HO.HBS 08:10
PROVIDERS: PCP Internal Medicine; Visit Provider Surgery
DX: E66.01 Morbid (severe) obesity due to excess calories (principal); Z68.43 Body mass index [BMI] 50.0-59.9, adult
CPT/HCPCS: 98011

== ENCOUNTER 2025-05-30 10:11 | Outpatient (AMB) | payer OTHER, SELFPAY ==
--- NOTE | 2025-05-30 10:00 | A.OFFWM_ITS ---
Intake Intake Visit Reasons: VIDEO BH Intake Allergies opiates Allergy (Intermediate, Uncoded 04/11/25 12:06) Nausea PFSH Medical History (Updated 04/11/25 @ 12:27 by Allen Singh MD) Obstructive sleep apnea on CPAP Bipolar 1 disorder Asthma Morbid obesity HTN (hypertension) Obesity HLD (hyperlipidemia) Depression Surgical History (Updated 04/11/25 @ 12:15 by Allen Singh MD) History of laparoscopic cholecystectomy History of submandibular gland removal History of colonoscopy Family History (Updated 03/07/25 @ 16:11 by Gasper Plunkett RN) Father No problems noted. Social History Substance Use Type: Marijuana Behavioral Health Assessment Weight Management Therapy Therapy Notes Details Patient is a 60 year old male presenting for a behavioral health assessment as part of the surgical weight loss program. He was initially referred by his primary care provider. The patient reports that he began following the prescribed meal plan in April; however, due to work demands and ongoing social events, adherence has been inconsistent. He states he has decided to delay full engagement in the prescribed meal and exercise plan until next month. Presenting Concerns Referral Source WMP-Provider Reason for referral Completion of behavioral health assessment as part of process for weight-loss surgery. Precipitating Event Obesity. Living Situation Current Living Situation Own At risk of losing current housing? No Satisfied with current living situation? Yes Comments Pt lives with his and their son. Food/Weight/Diet Expectations of change PT started the program on 04/11/2025 at 361Lbs. The initial Goal to lose 10% of his weight before surgery, which is about 41lbs. Ultimate weight goal: 320lbs before surgery. PT is implementing the following: Current meal plan: 2 protein shakes, 2.5 protein bars, and one meal per day. H ave not fully started Exercise plan: has a stationary bike but has not used it. Scale: yes Communication with/ provider: has not started. History/Relationship with food Example of meals before starting the program: Breakfast: eggs with an [place]an muffin and coffee. Lunch: Skip Dinner: [employer] service. - Chicken/carbs and veggies. Snacks: 2-3 snacks after dinner (cheese, cookies, Ice cream) Drinks/Liquids: Beverages: Coffee (2 cup/d cream and sugar), Tea: none, Soda: 1/2 weeks, Juice: none, ETOH: none since 2007 History/Relationship with weight PT reports he has always been overweight since a child. Under 200Lbs in HS. In the last 10 years, the patient's Lowest weight was 295Lbs and the highest 377Lbs History/Relationship with dieting Low carb, high high-protein diet and daily walks (2.5miles), lost 77Lbs. Social History Family history and relationship PT has been to his since 2003. They have a 25 y/o son who lives at home. Pt reports good family dynamics. He has 2 sisters and parents still alive. 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 Currently WNL. Social support and son. Community support PCP, some friends. Christian/Spirituality Orthodox. Cultural/Ethnic information White. Legal Involvement and History Current or historical involvement with the legal system? None reported. Education Highest grade completed Masters degree in Theology Preferred learning style Written, Learn by doing and Visual Currently enrolled in educational program? No Interested in further educational program? 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 ) Wants help to find employment? No Meaningful activities Watch movies, read, work with wood, and hang out with family. Financial Situation Describe current financial situation Comfortable Financial assistance? None Service Service? No Mental Health and Addiction Treatment Psychiatric history PT reported he has been on psych meds since 2009. PT reports he is diagnosed with Bipolar 2, most recent episode depressed. He has been in and out of therapy, and was in counseling for about 6 months. Psych meds: Abilify 2mg 1 at bedtime, escitalopram 10mg 1 at day, Lamictal 200mg 1 at day. Pt meets with prescriber every 3 months. Stable. PT denies ever being hospitalized for MH. Denies any hx or concerns with self- harm, other harm. Medical and Physical Health Summary Additional Medical History not covered in history None reported. Sexual History concerns None. Physical exam in the last year? No Pain Screening Current pain? No Pain in the last few months? No Medications Is the patient compliant with medications? Yes Does the patient have Paz Guardian in place? Not applicable Does the patient use complimentary health approaches? No Questionnaires PHQ-9 Over the last 2 weeks, how often have you been bothered by any of the following problems? 1. Little interest or pleasure in doing things: not at all 2. Feeling down, depressed, or hopeless: not at all 3. Trouble falling or staying asleep, or sleeping too much: not at all 4. Feeling tired or having little energy: more than half the days 5. Poor appetite or overeating: more than half the days 6. Feeling bad about yourself - or that you are a failure or have let yourself or your family down: not at all 7. Trouble concentrating on things, such as reading the newspaper or watching television: not at all 8. Moving or speaking so slowly that other people could have noticed. Or the opposite - being so fidgety or restless that you have been moving around a lot more than usual: not at all 9. Thoughts that you would be better off or of hurting yourself in some way: not at all Total score: 4 Depression Screening Interpretation: Positive (From new Pt pack. ) Depression Screening Done: Yes Source: Developed by Drs. Chance Frederick, Aubrie Perales, Igor Parker and colleagues, with an educational mónica from [employer]. Binge Eating Scale Group 1 A. I don't feel self-conscious about my wt. or body size when I'm with others. B. I feel concerned about how I look to others, but it normally does not make me fell disappointed with myself C. I do get self-conscious about my appearance and wt. which makes me feel disappointed in myself. D. I feel very self-conscious about my wt. and frequently I feel intense shame and disgust for myself. I try to avoid social contacts because of my self- consciousness. Response Group 1: C Group 2 A. I don't have any difficulty eating slowly in the proper manner. B. Although I seem to gobble down foods, I don't end up feeling stuffed because of eating to much. C. At times, I tend to eat quickly and then, I feel uncomfortably full afterwards. D. I have the habit of bolting down my food, without really chewing it. When this happens I usually feel uncomfortably stuffed because I've eaten to much. Response Group 2: B Group 3 A. I feel capable to control my eating urges when I want to. B. I feel like I have failed to control my eating more than the average person. C. I feel utterly helpless when it comes to feeling in control of my eating urges. D. Because I feel so helpless about controlling my eating I have become very desperate about trying to get control. Response Group 3: C Group 4 A. I don't have the habit of eating when I'm bored. B. I sometimes eat when I'm bored, but often I'm able to get busy and get my mind off food. C. I have a regular habit of eating when I'm bored, but occasionally, I can use some other activity to get my mind off eating. D. I have a strong habit of eating when I'm bored. Nothing seems to help me breath the habit. Response Group 4: A Group 5 A. I'm usually physically hungry when I eat something. B. Occasionally, I eat something on impulse even though I really am not hungry. C. I have the regular habit of eating foods, that I might not really enjoy, to satisfy a hungry feeling even though physically, I don't need the food. D. Although I'm not physically hungry, I get a hungry feeling in my mouth that only seems to be satisfied when I eat a food, like sandwich, that fills my mouth. Sometimes, when I eat the food to satisfy my mouth hunger, I then spit the food out so I won't gain weight. Response Group 5: C Group 6 A. I don't feel any guilt or self-hate after I overeat. B. After I overeat, occasionally I feel guilt or self-hate. C. Almost all the time I experience strong guilt or self-hate after I overeat. Response Group 6: B Group 7 A. I don't lose total control of my eating when dieting even after periods when I overeat. B. Sometimes when I eat a forbidden food on a diet, I feel like I blew it and eat even more. C. Frequently, I have the habit of saying to myself, I've blown it now, why not go all the way, when I overeat on a diet. When that happens I eat more. D. I have a regular habit of starting a strict diets for myself but I break the diets by going on an eating binge. My life seems to be either a feast or famine. Response Group 7: C Group 8 A. I rarely eat so much food that I feel uncomfortably stuffed afterwards. B. Usually about once a month, I each such a quantity of food, I end up feeling very stuffed. C. I have regular periods during the month when I eat large amounts of food, either at mealtime or at snacks. D. I eat so much food that I regularly feel quite uncomfortable after eating and sometimes a bit nauseous. Response Group 8: A Group 9 A. My level of calorie intake does not go up very high or go down very low on a regular basis. B. Sometimes after I overeat, I will try to reduce my caloric intake to almost nothing to compensate for the excess calories I've eaten. C. I have a regular habit of overeating during the night. It seems that my routine is not to be hungry in the morning but overeat in the evening. D. In my adult years, I have had week-long periods where I practically starve myself. This follows periods when I overeat. It seems I live a life of either feast or famine. Response Group 9: C Group 10 A. I usually am able to stop eating when I want to. I know when enough is enough. B. Every so often, I experience a compulsion to eat which I can't seem to control. C. Frequently, I experience strong urges to eat which I seem unable to control, but at other times I can control my eating urges. D. I feel incapable of controlling urges to eat. I have a fear of not being able to stop eating voluntarily. Response Group 10: C Group 11 A. I don't have any problem stopping eating when I feel full. B. I usually can stop eating when I feel full but occasionally overeat leaving me feeling uncomfortably stuffed. C. I have a problem stopping eating once I start and usually I feel uncomfortably stuffed after I eat a meal. D. Because I have a problem not being able to stop eating when I want, I sometimes have to induce vomiting to relieve my stuffed feeling. Response Group 11: B Group 12 A. I seem to eat just as much when I'm with others, Family social gatherings as when I'm by myself. B. Sometimes, when I'm with other persons, I don't eat as much as I want to eat because I'm self-conscious about my eating. C. Frequently, I eat only a small amount of food when others are present, because I'm very embarrassed about my eating. D. I feel so ashamed about overeating that I pick times to overeat when I know no one will see me. I feel like a closet eater. Response Group 12: C Group 13 A. I eat three meals a day with only an occasional between meal snack. B. I eat 3 meals a day, but I also normally snack between meals. C. When I am snacking heavily, I get in the habit of skipping regular meals. D. There are regular periods when I seem to be continually eating, with no planned meals. Response Group 13: D Group 14 A. I don't think much about trying to control unwanted eating urges. B. At least some of the time, I feel my thoughts are pre-occupied with trying to control my eating urges. C. I feel that frequently I spend much time thinking about how much I ate or about trying not to eat anymore. D. It seems to me that most of my waking hours are pre-occupied by thoughts about eating or not eating. I feel like I'm constantly struggling not to eat. Response Group 14: C Group 15 A. I don't think about food a great deal. B. I have strong craving for food but they last only for brief periods of time. C. I have days when I can't seem to think about anything else but food. D. Most of my days seem to be pre-occupied with thoughts about food. I feel like I live to eat. Response Group 15: B Group 16 A. I usually know whether or not I'm physically hungry. I take the right portion of food to satisfy me. B. Occasionally, I feel uncertain about knowing whether or not I'm physically hungry. A these times it's hard to know how much food I should take to satisfy me. C. Even though I might know how many calories I should eat, I don't have any idea what is a normal amount of food for me. Response Group 16: B Binge Eating Score: 24 Score less than 17 Minimal Risk Score between 18-26 Moderate Risk Score between 27-46 High Risk Assessment & Plan Assessment & Plan (1) Bipolar 1 disorder: Code(s): F31.9 - Bipolar disorder, unspecified (2) Pre-bariatric surgery psychological evaluation: Code(s): Z71.89 - Other specified counseling Plan Patient is not cleared at this time. Follow up is planned in approximately one month to continue the evaluation and assess adherence to program recommendat ions. Next appointment scheduled for?07/04/2025 at 9:00 AM (video visit). Patient was unable to attend an earlier appointment. Telehealth Telehealth Telehealth Platform: [employer] Location of provider rendering services: other (Home office. [place], [place]) Location of patient: other ([facility]. [place]) Patient Identification confirmed using: Name, : Yes Telehealth method: video Patient verbally consented to treatment: Yes Patient verbally consented to billing insurance company: Yes Patient informed of any privacy concerns related to visit: Yes Minutes spent on Phone/Video with Pt.: 55 [place] [address] Tele Psy Diag Eval Patient Type New Diagnoses Bipolar 1 disorder F31.9 Pre-bariatric surgery psychological evaluation Z71.89 Time Spent (min) 55
--- OUTSIDE RECORDS SUMMARY | 2025-05-30 11:26 | XMS_ITS | Clinical Summary ---
Author Organization [address] Address [address] [place] [phone] Phone Care Team Providers Care Decator Operator Name Role Phone Ruth Singh MD Primary Care Provider [phone] Allergies Active Allergy Reactions Criticality Noted Date [...] Depression 03/11/2024 Sleep apnea 03/11/2024 Morbid obesity 03/11/2024 Asthma 03/11/2024 Pure hypercholesterolemia 03/11/2024 Elevated glucose 03/11/2024 KING on CPAP 03/11/2024 Hepatic steatosis 03/11/2024 Bipolar 2 disorder 03/11/2024 Palpitation 03/11/2024 Biliary dyskinesia 03/11/2024 Sinus tachycardia [...] PROCEDURE: EXCISION OF SALIVARY GLAND CHOLECYSTECTOMY PROCEDURE: [place] LAPAROSCOPY SURG CHOLECYSTECTOMY Medical History Medical History Date Comments Morbid obesity (CMS/HCC V24, CMS/HCC V28) 02/04/20 13 DX:Morbid obesity (HCC) Sleep [...] Record ed Within the last 3 months, yunier back many times did you visit the emergency [...] for your loved ones. For example, child neurologist or elderly care for an older adult? [...] on file Sexual Orientation Not on file Last Filed Vital Signs Vital Sign Reading [...] HIV Screening 05/04/2022 Hepatitis C Screening 05/04/2022 COVID-19 Vaccine ( season) 2025 05/07/2024, 03/29/2022, 11/07/2021, Additional history exists Influenza Vaccine (#1) 2025 , 03/29/2022, 02/18/2019, Additional history exists Hypertension/CHF/CAD Annual BMP Blood Test 04/19/2025 04/19/2024, 02/13/2023 Social Influencers of Health Screening 10/19/2025 10/19/2024 Cholesterol Screening (Lipid Panel) 04/19/2029 04/19/2024, 02/13/2023 Colorectal Cancer Screening: Colonoscopy 03/19/2031 03/19/2021 DTaP,Tdap,and Td Vaccines (3 - Td or Tdap) 10/19/2034 10/19/2024, 08/27/2013 Depression Screening Completed 10/19/2024 HIB Vaccines Aged [...] LAB CHEMISTRY METHOD 04/19/2024 6:37 PM EST [facility] Triglycerides 291(H) 0 - 150 mg/dL LAB CHEMISTRY METHOD 04/19/2024 6:37 PM [facility] HDL 41 >=40 mg/dL LAB CHEMISTRY METHOD 04/19/2024 6:37 PM [facility] LDL Calculated 89 0 - 100 mg/dL LAB CHEMISTRY METHOD 04/19/2024 6:37 PM EST [facility] VLDL Cholesterol Smith 58.2 mg/dL LAB CHEMISTRY METHOD 04/19/2024 6:37 PM [facility] Non HDL Chol. (LDL+VLDL) 147(H) <145 mg/dL LAB CHEMISTRY METHOD 04/19/2024 6:37 PM [facility] Chol/HDL Ratio 4.6(H) 0.0 - 4.4 LAB CHEMISTRY METHOD 04/19/2024 6:37 PM [facility] Blood Venous blood specimen / Unknown Venipuncture / Unknown 04/19/2024 3:41 PM EST 04/19/2024 3:41 PM EST us Nikolai DIAZ LAB BLOOD ORDERABLES Final Res ult [facility] [address] [place] [address], * Basic metabolic panel (04/19/2024 3:41 PM EST) Pathologist [facility] Sodium 143 133 - 145 mmol/L LAB CHEMISTRY METHOD 04/19/2024 6:35 PM [facility] Potassium 4.0 3.5 - 5.5 mmol/L LAB CHEMISTRY METHOD 04/19/2024 6:35 PM [facility] Chloride 110 96 - 110 mmol/L LAB CHEMISTRY METHOD 04/19/2024 6:35 PM EST [facility] CO2 26 21 - 32 mmol/L LAB CHEMISTRY METHOD 04/19/2024 6:35 PM [facility] Anion Gap 7 3 - 11 LAB CHEMISTRY METHOD 04/19/2024 6:35 PM [facility] Glucose 79 70 - 100 mg/dL LAB CHEMISTRY METHOD 04/19/2024 6:35 PM [facility] BUN 20 5 - 25 mg/dL LAB CHEMISTRY METHOD 04/19/2024 6:35 PM [facility] Creatinine 1.16 0.70 - 1.30 mg/dL LAB CHEMISTRY METHOD 04/19/2024 6:35 PM [facility] eGFR 73 >=60 mL/min/1. 73m2 LAB CHEMISTRY METHOD 04/19/2024 6:35 PM [facility] Comment:Calculation based on the Chronic Kidney Disease Epidemiology Collaboration (CKD-EPI) equation refit without adjustment for race. BUN/Creatinine Ratio 17.2 LAB CHEMISTRY METHOD 04/19/2024 6:35 PM [facility] Calcium 9.5 8.5 - 10.5 mg/dL LAB CHEMISTRY METHOD 04/19/2024 6:35 PM [facility] Blood Venous blood specimen / Unknown Venipuncture / Unknown 04/19/2024 3:41 PM EST 04/19/2024 3:41 PM EST Nikolai DIAZ LAB BLOOD ORDERABLES Final Res ult [facility] [address] [place] [address], [place] [phone] * Colonoscopy (03/19/2021) Colonoscopy no interpretation abstracted Anatomical Region Laterality Modality Other Historical Provider MD HEALTH MAINTENANCE Final Result from Last 3 Months or Most Recently Relevant to Health Maintenance Insurance [employer] Care Teams Decator Operator Relationship Specialty Start Date End Date Ruth Singh MD [address] [place] [phone] PCP - General Internal Medicine 04/15/24
== END 2025-05-30 11:10 | disposition home or self-care (01) ==
LOC: HO.HBST 10:11
PROVIDERS: Visit Provider Counselor Mental Health
DX: F31.9 Bipolar disorder, unspecified (principal); Z71.89 Other specified counseling
CPT/HCPCS: 90791